=== PATIENT | female | born 1990 ===

== ENCOUNTER 2021-06-16 20:23 | Emergency (ER) ==
[~2021-06-16] VITALS: Ht 167.6 cm; Wt 134.6 kg
[2021-06-16 20:25] VITALS: BP 163/87
--- OUTSIDE RECORDS SUMMARY | 2021-06-16 20:30 | CCD | Summary of Care ---
Author Author [facility] Address Unknown Phone Unavailable Care Team Providers Care Director Workforce Management Name Role Phone Pcp, No PCP Unavailable Reason for Visit * Reason Comments Hyperglycemia Encounter Details Care Team Description Date Type Department 04/09/2021 [facility] [id number] [place] [address] Allergies Comments Active Allergy Reactions Severity Noted Date Codeine Nausea And 08/02/2013 Vomiting Iodinated Diagnostic Anaphylaxis High Agents documented as of this encounter (statuses as of 04/09/2021) Medications End Date Status Medication Sig Dispensed Refills Start Date 04/08/2021 Discontinued (Formulary segovia ge) cetirizine (ZYRTEC) 10 MG Take 10 mg by 0 tablet mouth daily. documented as of this encounter (statuses as of 04/09/2021) Active Problems Not on filedocumented as of this encounter (statuses as of 04/09/2021) Social History Date Tobacco Use Types Packs/Day Years Used Never Smoker Sex Assigned at Date Recorded Not on file Date Recorded COVID-19 Exposure Response 04/08/2021 10:37 PM EDT In the last month, have you been in contact with No / Unsure someone who was confirmed or suspected to have Coronavirus / COVID-19? documented as of this encounter Last Filed Vital Signs Reading Time Taken Comments Vital Sign 172/100 04/08/2021 10:53 PM EDT Blood Pressure 88 04/08/2021 10:53 PM EDT Pulse 37 C (98.6 F) 04/08/2021 10:53 PM EDT Temperature 18 04/08/2021 10:53 PM EDT Respiratory Rate 98% 04/08/2021 10:53 PM EDT Oxygen Saturation - - Inhaled Oxygen Concentration 117.9 kg (260 lb) 04/08/2021 10:53 PM EDT Weight 167.6 cm (5' 6") 04/08/2021 10:53 PM EDT Height 41.97 04/08/2021 10:53 PM EDT Body Mass Index documented in this encounter ED Notes * Bambi Cuadra, RN - 04/09/2021 1:09 AM EDT Called to be roomed, no answer * Ifeoma Randhawa RN - 04/08/2021 10:51 PM EDT Known h/o DM II. Has not had her regular medications recently- Moved here- has n ot established a PCP. FSBS 270 in triage documented in this encounter Plan of Treatment Health Maintenance Due Date Last Done Comments MMR Vaccines (1 of 1 - 1993 Standard series) Varicella Vaccines (1 of 1993 2 - 2-dose childhood series) DTaP,Tdap,and Td Vaccines 1999 (1 - Tdap) COVID-19 Vaccine (1) 2004 HIV Screening 2005 Cervical Cancer Screening 2013 3 years Influenza Vaccine 04/23/2021 Pneumococcal Vaccine: 65+ 2057 Years (1 of 1 - PPSV23) HIB Vaccines Aged Out No longer eligible based on patient's age to complete this topic Hepatitis A Vaccines Aged Out No longer eligibl e based on patient's age to complete this topic Hepatitis B Vaccines Aged Out No longer eligibl e based on patient's age to complete this topic IPV Vaccines Aged Out No longer eligible based on patient's age to complete this topic Pneumococcal Vaccine: Aged Out No longer eligib le based on patient's age to Pediatrics (0 to 5 Years) complete this topic and At-Risk Patients (6 to 64 Years) documented as of this encounter Procedures Comments Procedure Name Priority Date/Time Associated Diag nosis POCT GLUCOSE, DOCKED Routine 04/08/2021 10:51 PM EDT documented in this encounter Results * POCT glucose, docked (04/08/2021 10:51 PM EDT) POC Glucose 270 (H) 70 - 140 mg/dL [facility] POC Specimen Whole Blood Performing Organization Address City/State/ZIP Code P jordi Number POINT OF CARE TEST [address] [place] [address] [facility] POC [address] [place], [place] [address] documented in this encounter
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
== END 2021-06-17 01:08 | disposition left against medical advice (07) ==
LOC: M ED 20:23
DX: Z53.21 Procedure and treatment not carried out due to patient leaving prior to being seen by health care provider (principal)